=== PATIENT | male | born 1995 | race Caucasian/White ===

== ENCOUNTER 2019-03-26 15:28 | Emergency (ER) | payer SELFPAY ==
[~2019-03-26] VITALS: Ht 172.7 cm; Wt 86.2 kg
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
--- NOTE | 2019-03-26 16:10 | NUR ---
ED Nurse Note: bag secured on psych locker #2.
[2019-03-26 16:14] LABS: BASOPHILS % (AUTO) 1.3 % (0.0-2.0); EOSINOPHILS % (AUTO) 2.1 % (0.0-3.0); HEMATOCRIT 39.7 % (42.0-52.0); HEMOGLOBIN 13.6 G/DL (14.2-18.0); LYMPHOCYTES % (AUTO) 46.8 % (20.0-45.0); MEAN CORPUSCULAR VOLUME 79 FL (80-99); MONOCYTES % (AUTO) 10.3 % (1.0-10.0); NEUTROPHILS % (AUTO) 39.5 % (45.0-75.0); PLATELET COUNT 273 K/UL (150-450); RED BLOOD COUNT 5.02 M/UL (4.70-6.10); RED CELL DISTRIBUTION WIDTH 10.2 % (11.6-14.8); WHITE BLOOD COUNT 7.8 K/UL (4.8-10.8)
--- NOTE | 2019-03-26 16:15 | NUR ---
AWAKE ALERT ORIENTED X 4 DENIES ANY SUICIDAL IDEATION NOW FAMILY AT BEDSIDE
[2019-03-26 16:21] LABS: ANION GAP 9 mmol/L (5-15); BLOOD UREA NITROGEN 10 mg/dL (7-18); CARBON DIOXIDE 29 MMOL/L (21-32); CHLORIDE 103 MMOL/L (98-107); CREATININE 0.9 MG/DL (0.55-1.30); POTASSIUM 3.5 MMOL/L (3.5-5.1); SODIUM 141 MMOL/L (136-145)
[2019-03-26 16:25] LABS: ALANINE AMINOTRANSFERASE 53 U/L (12-78); ALKALINE PHOSPHATASE 82 U/L (46-116); ASPARTATE AMINO TRANSFERASE 31 U/L (15-37); BILIRUBIN,TOTAL 0.5 MG/DL (0.2-1.0)
[2019-03-26 16:37] VITALS: BP 131/92
--- NOTE | 2019-03-26 16:39 | NUR ---
DISCHARGED WITH INSTRUCTION TO FOLLOW UP WITH PMD REFERRALS GIVEN TO PATIENT EXPLAINED THRE NEED FOR FOLLOW UP WITH FAMILY
[2019-03-26 16:40] VITALS: BP 131/92
--- NOTE | 2019-03-28 15:31 | Cardiology Report ---
APPROVED REPORT EKG Measurement Heart [id number] MD [id number] Normal sinus rhythm Nonspecific ST and T wave abnormality Abnormal ECG
== END 2019-03-26 16:43 | disposition home or self-care (01) ==
LOC: EDBD 15:28 → EMR 16:20
DX: F11.90 Opioid use, unspecified, uncomplicated (principal); F17.210 Nicotine dependence, cigarettes, uncomplicated
CPT/HCPCS: 36415; 80053; 80307; 85025; 93005; 99283; G0480

== ENCOUNTER → 2019-08-01 | Emergency (ER) | payer SELFPAY ==
[~2019-08-01] VITALS: Ht 172.7 cm; Wt 68.0 kg
[2019-08-01 01:31] VITALS: BP 136/84
[2019-08-01 01:45] VITALS: BP 136/84
--- NOTE | 2019-08-01 03:06 | Emergency Room Report ---
History of Present Illness General Chief Complaint: Overdose Present Illness COVID-19 risk:Travel to affect: No Has patient experienced madrigal: No Allergies: Coded Allergies: No Known Allergies (Unverified , 03/26/19) Physical Exam Vital Signs Date Time Temp Pulse Resp B/P (MAP) Pulse Ox O2 Delivery O2 Flow Rate FiO2 08/01/19 01:29 100.0 135 20 136/84 (101) 99 Room Air Medical Decision Making Diagnostic Impression: Primary Impression: Patient left without being seen ER Course patient left prior to MD evaluation Last Vital Signs Date Time Temp Pulse Resp B/P (MAP) Pulse Ox O2 Delivery O2 Flow Rate FiO2 08/01/19 01:45 100.0 135 20 136/84 99 Room Air Status: improved Disposition: LEFT W/OUT BEING SEEN Condition: Stable Scripts No Active Prescriptions or Reported Meds Anthony Chris MD Aug 01, 2019 03:06
== END | disposition left against medical advice (07) ==
LOC: EDBD 01:26 → EDUNIT# 01:26 → EMR 03:08
DX: Z53.21 Procedure and treatment not carried out due to patient leaving prior to being seen by health care provider (principal)
CPT/HCPCS: 99282